=== PATIENT | male | born 1980 | race Caucasian/White ===

== ENCOUNTER 2017-06-14 09:06 | Inpatient (IN) | payer BC, OTHER ==
[~2017-06-14] VITALS: Ht 182.9 cm; Wt 81.6 kg
--- NOTE | 2017-06-14 12:54 | NUR ---
PRE-ADMISSION NOTES Patient is in intake office at this time. Pt is A/O x4, slow to respond. Patient denies medical history, denies having home medications Pt reports being here for ETOH withdrawals. V/S are stable. Denies hx of seizures. Primary nurse to complete admission when patient is on unit.
[2017-06-14 12:57] VITALS: BP 138/100
[2017-06-14] MEDS ORDERED: LORAZEPAM 1 MG TABLET PO PRN ×2 (13:30)
[2017-06-14] MEDS ORDERED: LOPERAMIDE HCL 2 MG CAPSULE PO PRN ×2 (13:30)
[2017-06-14] MEDS ORDERED: LORAZEPAM 2 MG/1 ML VIAL IM PRN (13:30)
[2017-06-14] MEDS ORDERED: ONDANSETRON 4 MG/2 ML VIAL IM PRN (13:30)
[2017-06-14] MEDS ORDERED: ACETAMINOPHEN 325 MG TABLET PO PRN (13:30)
[2017-06-14] MEDS ORDERED: MAG HYDROX/AL HYDROX/SIMETH 30 ML LIQUID UDC PO PRN (13:30)
[2017-06-14] MEDS ORDERED: ONDANSETRON ODT 4 MG TAB.RAPDIS SL PRN (13:30)
[2017-06-14] MEDS ORDERED: MIRALAX 17 GM POWD.PACK PO PRN (13:30)
[2017-06-14] MEDS ORDERED: IBUPROFEN 400 MG TABLET PO PRN (13:30)
[2017-06-14] MEDS ORDERED: THIAMINE HCL 200 MG/2 ML VIAL IM ONE (14:00)
--- NOTE | 2017-06-14 15:25 | NUR ---
ADMISSION: A 37 YO MALE ADMITTED FOR MEDICALLY SUPERVISED WITHDRAWAL OF ETOH. HE PRESENTS WITH ANXIOUS MOOD AND CONGRUENT AFFECT. HE IS ODOROUS OF ETOH. HE STATES HE IS CRAVING ALCOHOL AT THIS TIME. HE STATES HE HAD 3 SHOTS OF VODKA AND A BLOODY ALETHA AT [facility] [place] A COUPLE OF HOURS AGO. HE REPORTS DRINKING 750 ML OF VODKA DAILY ALONG WITH 6-12 BEERS. HE STATES IT IS AFFECTING HIS MARRIAGE AND HE IS BLACKING OUT AND DRINKING IN THE MORNING. HE STATES HIS LIFE IS OUT OF CONTROL AND AND HE HAS BEEN GETTING VIOLENT BREAKING THINGS IN THE HOUSE. HE STATES HE NEEDS HELP AND CANNOT STOP DRINKING ON HIS OWN. HE DENIES S/I AND H/I. HE DENIES SZ HX. HE DENIES MEDICAL HX. HE DENIES ALLERGIES. HE DENIES A PCP. HE STATES HE HAS NEVER BEEN TO DETOX OR TREATMENT BEFORE. ORIENTED PT TO STAFF AND UNIT. ENCOURAGED INCREASED FLUIDS. REASSURED HIM THAT NURSING STAFF IS HERE 07/03. MD ASSESSED PT. HE REFUSED THIAMINE INJECTION. WILL CONTINUE TO MONITOR AND PROVIDE SAFE AND SUPPORTIVE ENVIRONMENT. Addendum: 06/14/17 at 1738 by JENNY LEO RN SKIN INTACT
[2017-06-14 15:38] LABS: *AMPHETAMINE, URINE NEGATIVE (NEGATIVE); *BARBITURATE, URINE NEGATIVE (NEGATIVE); *CANNABINOID, URINE NEGATIVE (NEGATIVE); *COCCAINE, URINE NEGATIVE (NEGATIVE); *OPIATE, URINE NEGATIVE (NEGATIVE); *PHENCYCLIDINE SCREEN,URINE NEGATIVE (NEGATIVE)
[2017-06-14 15:44] LABS: BASOPHILS # (AUTO) 0.1 K/uL (0.0-8.0); BASOPHILS % (AUTO) 0.9 % (0.0-2.0); EOSINOPHILS # (AUTO) 0.1 K/uL (0.0-0.7); EOSINOPHILS % (AUTO) 0.8 % (0.0-7.0); HEMATOCRIT 45.2 % (40-50); HEMOGLOBIN 14.9 G/DL (14.0-18.0); LYMPHOCYTES # (AUTO) 2.5 K/UL (0.8-4.8); MEAN CORPUSCULAR HEMOGLOBIN 29.5 UUG (27.0-31.0); MEAN CORPUSCULAR HGB CONC 33 g/dL (32.0-37.0); MEAN CORPUSCULAR VOLUME 89.7 FL (82.0-92.0); MONOCYTES # (AUTO) 0.6 K/UL (0.1-1.30); MONOCYTES % (AUTO) 8.1 % (0.0-11.0); NEUTROPHILS # (AUTO) 3.9 K/UL (1.8-8.9); NEUTROPHILS % (AUTO) 55.2 % (38.5-71.5); PLATELET COUNT (AUTO) 271 K/UL (150-450); RED BLOOD CELL COUNT(AUTO) 5.04 MIL/UL (4.7-6.1); WHITE BLOOD COUNT (AUTO) 7.2 K/UL (4.0-11.2)
[2017-06-14 16:00] VITALS: BP 104/54
[2017-06-14 16:04] LABS: BILIRUBIN,TOTAL 0.3 mg/dL (0.2-1.0); POTASSIUM 4.4 mmol/L (3.5-5.1)
[2017-06-14 16:24] LABS: CREATININE 0.9 mg/dL (0.6-1.3)
--- NOTE | 2017-06-14 17:00 | NUR ---
CIWA DEFERRED. PT IS ASLEEP. RESPIRATIONS EVEN AND UNLABORED. CALL SWAIN IN REACH. BED LOCKED AND LOW.
--- NOTE | 2017-06-14 19:06 | NUR ---
END OF SHIFT: PT HAS BEEN SLEEPING SINCE ASSESSMENT WAS FINISHED. CALL BED IN REACH. BED LOCKED AND LOW. WILL PASS SHIFT REPORT TO ONCOMING NIGHT NURSE.
[2017-06-14 20:00] VITALS: BP 116/71
--- NOTE | 2017-06-14 20:00 | NUR ---
Start of Shift Pt is a 37 year old male admitted for ETOH dependence. Pt reported consuming Vodka 750ml /daily and Beer 6-12/daily. Pt denies any past medical history. NKA, regular diet, fall/seizure precaution no hx of seizures and full code. Upon assessment, Pt reports feeling anxious, reports feeling mild chills, skin flushed/clammy, respirations even/unlabored, denies SOB/chest pain, denies n/v/d, safety measures in place, call light within reach, side rails up x2, bed locked and in low position. Will continue to monitor.
[2017-06-14] MEDS ORDERED: LORAZEPAM 1 MG TABLET PO ONE (21:00)
[2017-06-15] VITALS: BP 106/53
--- NOTE | 2017-06-15 | NUR ---
Vital Signs/CIWA deferred BP 106/53, pulse 92, resp 16, Spo2 98% room air, temp 98.1, no pain CIWA deferred due to pt sleeping, to assess while pt is awake as ordered Safety measures in place, will continue to monitor.
[2017-06-15] MEDS: diphenhydrAMINE 50 MG CAPSULE PO PRN (03:46)
--- NOTE | 2017-06-15 03:46 | NUR ---
PRN Administration Pt reports, "I sleep for an hour. Its on and off. then I wake up" Benadryl 50mg PRN administered. Safety measures in place, will continue to monitor.
[2017-06-15 04:00] VITALS: BP 106/59
--- NOTE | 2017-06-15 04:36 | NUR ---
PRN Reassessment Upon reassessment, pt is in bed, resting with eyes closed, respirations even/unlabored. Safety measures in place, will continue to monitor.
--- NOTE | 2017-06-15 07:00 | NUR ---
End of Shift Pt is a 37 year old male admitted for ETOH dependence. Pt reported consuming Vodka 750ml /daily and Beer 6-12/daily. Pt denies any past medical history. NKA, regular diet, fall/seizure precaution no hx of seizures and full code. During shift, Pt reported feeling anxious, reported feeling mild chills, skin flushed/clammy scheduled Ativan 2mg x1 administered, CIWA 5. Benadryl 50mg PRN administered for sleep. Pt slept for 6 hours, intake of 1500 ml PO, voids x3 and stool x0. Safety measures in place, call light within reach, side rails up x2, bed locked and in low position. Endorsed to day shift nurse.
--- NOTE | 2017-06-15 07:20 | NUR ---
Start of Shift Endorsement received from nightshift nurse. Pt is a 37 y/o male admitted for alcohol dependence. PT has not been placed on a taper at this time. Pt is under observation under the care of Dr. Alfaro. Pt is moderately withdrawing AEB CIWA 5 at midnight. Pt received PRN Ativan and Benadryl. PT reports sleeping 6 hours. PT remains compliant with medication regimen. VS WNL. Full Code. Pt is alert and oriented x4. Call light within reach. All safety measures are in place, side rails up x2. All needs have been met at this time. Will continue to monitor.
[2017-06-15 08:04] VITALS: BP 139/79
[2017-06-15 08:06] LABS: HEPATITIS B SURFACE AG Negative (Negative)
[2017-06-15] MEDS: MULTIVITAMINS,THERAPEUTIC TABLET PO SCH (08:13)
[2017-06-15] MEDS: THIAMINE HCL 100 MG TABLET PO SCH (08:13)
[2017-06-15] MEDS: FOLIC ACID 1 MG TABLET PO SCH (08:13)
--- NOTE | 2017-06-15 08:13 | NUR ---
PRN Ativan Administered prn ativan 1mg for CIWA 6.
--- NOTE | 2017-06-15 08:30 | NUR ---
Medication Re-assessment Pt presents with CIWA score of 2. Medication was effective.
[2017-06-15] MEDS ORDERED: TUBERCULIN,PURIF.PROT.DERIV. 5 TU/0.1 ML TEST ID ONE (09:00)
[2017-06-15 12:00] VITALS: BP 146/84
[2017-06-15] MEDS: LORAZEPAM 1 MG TABLET PO SCH ×2 (12:15→20:08)
[2017-06-15 16:00] VITALS: BP 144/88
--- NOTE | 2017-06-15 19:04 | NUR ---
End of Shift Endorsement given to nightshift nurse. Pt is a 37 y/o male admitted for alcohol dependence. PT has been placed on a modified Subutex taper. Pt is moderately withdrawing AEB CIWA 4 at 1600. Pt received PRN Ativan. PT participated in groups and activities. Educated pt on diet and medication regimen. Intake: 2180ml, Void x3, BM x1. PT remains compliant with medication regimen. VS WNL. Full Code. Pt is alert and oriented x4. Call light within reach. All safety measures are in place, side rails up x2. All needs have been met at this time. Will continue to monitor.
[2017-06-15 20:00] VITALS: BP 130/85
--- NOTE | 2017-06-15 20:00 | NUR ---
Start of Shift Pt is a 37 year old male admitted for ETOH dependence. Pt reported consuming Vodka 750ml /daily and Beer 6-12/daily. Pt denies any past medical history. NKA, regular diet, fall/seizure precaution - no hx of seizures and full code. Upon assessment, Pt reports feeling anxious, reports mild body/aches, skin flushed/clammy, encouraged pt to participate in activities, respirations even/unlabored, denies SOB/chest pain, denies n/v/d, safety measures in place, call light within reach, side rails up x2, bed locked and in low position. Will continue to monitor.
[2017-06-15] MEDS: GABAPENTIN 300 MG CAPSULE PO SCH (20:08)
[2017-06-16] VITALS: BP 121/70
--- NOTE | 2017-06-16 | NUR ---
Vital Signs/CIWA deferred BP 121/70, pulse 79, resp 16, Spo2 99% room air, temp 98, no pain CIWA deferred due to pt sleeping, to assess while pt is awake as ordered Safety measures in place, will continue to monitor.
--- NOTE | 2017-06-16 04:00 | NUR ---
Pt refused to be woken up for 0400 VS. CIWA deferred due to pt sleeping, to assess while pt is awake as ordered. Safety measures in place, will continue to monitor.
--- NOTE | 2017-06-16 07:00 | NUR ---
End of Shift Pt is a 37 year old male admitted for ETOH dependence. Pt reported consuming Vodka 750ml /daily and Beer 6-12/daily. Pt denies any past medical history. NKA, regular diet, fall/seizure precaution - no hx of seizures and full code. During shift, Pt reported feeling anxious, reported mild body/aches, skin flushed/clammy scheduled taper medications administered, effective in management of s/s of withdrawal as reported per pt, CIWA 4. No PRN medications administered during shift. Pt remained in room throughout shift, encouraged pt to participate in activities. Pt slept for 10 hours, intake of 500 ml PO, voids x1 and stool x0. Safety measures in place, call light within reach, side rails up x2, bed locked and in low position. Endorsed to day shift nurse.
--- NOTE | 2017-06-16 07:30 | NUR ---
start of shift note: received pt from hourly shift nurse, pt's last ciwa is 4 pt is admitted for etoh withdrawal/dependence. pt is anxious and appears stressed and depressed about being away from work and family. will monitor pt for any changes and will continue to meet pt's needs
[2017-06-16] MEDS: FOLIC ACID 1 MG TABLET PO SCH (08:01)
[2017-06-16] MEDS: MULTIVITAMINS,THERAPEUTIC TABLET PO SCH (08:01)
[2017-06-16] MEDS: GABAPENTIN 300 MG CAPSULE PO SCH ×3 (08:02→20:30)
[2017-06-16] MEDS: CLONIDINE HCL 0.1 MG TABLET PO PRN (08:02)
[2017-06-16] MEDS: LORAZEPAM 1 MG TABLET PO SCH ×2 (08:02→15:33)
[2017-06-16] MEDS: THIAMINE HCL 100 MG TABLET PO SCH (08:02)
--- NOTE | 2017-06-16 08:02 | NUR ---
PRN ADMINISTRATION: PT WITH B/P OF 142/87, and also verbalized he was anxious and crawling out of his skin. prn clonidine was administered. will re-assess effectiveness of medication
[2017-06-16 09:00] VITALS: BP 142/87
--- NOTE | 2017-06-16 09:00 | NUR ---
prn re-assessment: pt's b/p currently is 130/78, pt did a phone call with primary nurse to home, pt was able to speak with and pt verbalized he feels better and more at ease.
[2017-06-16 12:00] VITALS: BP 163/104
[2017-06-16] MEDS ORDERED: CLONIDINE HCL 0.2 MG TABLET PO ONE (12:00)
--- NOTE | 2017-06-16 14:34 | NUR ---
therapist prompted client to attend group today and not isolate in his room, client agreed to attend groups.
[2017-06-16 16:00] VITALS: BP 142/99
[2017-06-16] MEDS ORDERED: LORAZEPAM 1 MG TABLET PO ONE (17:15)
[2017-06-16] MEDS ORDERED: LORAZEPAM 1 MG TABLET PO PRN ×2 (17:15)
--- NOTE | 2017-06-16 19:05 | NUR ---
Start of Shift Patient Received. Patient is in his room awake, alert and verbally responsive. Breathing even and non labored. Patient is awake and watching TV. Patient is a 37 year old male admitted on 06/14/17 for ETOH Dependence under the care of Dr. Alfaro and patient continues on a modified 3 day Ativan taper. Patient verbalizes no known allergies, wishes to be full code, following a regular diet, placed on fall precautions, skin noted intact. No past medical history noted. Per endorsement, patient was given PRN Clonidine with medication noted to be effective. Last noted CIWA is 8. All needs attended to promptly. Will continue plan of care as ordered.
--- NOTE | 2017-06-16 19:12 | NUR ---
End of Shift Endorsement given to nightshift nurse. Pt is a 37 y/o male admitted for alcohol dependence. PT has been placed on a modified Subutex taper. Pt is mildly withdrawing AEB CIWA 2 at 1600. Pt did not receive any PRN medications. PT participated in groups and activities. Educated pt on coping mechanisms. Intake: 5000ml, Void x3, BM x1. PT remains compliant with medication regimen. VS WNL. Full Code. Pt is alert and oriented x4. Call light within reach. All safety measures are in place, side rails up x2. All needs have been met at this time. Will continue to monitor.
[2017-06-16 20:21] VITALS: BP 112/72
[2017-06-16] MEDS: ESCITALOPRAM OXALATE 10 MG TABLET PO SCH (20:30)
[2017-06-16] MEDS ORDERED: LORAZEPAM 1 MG TABLET PO SCH (21:00)
[2017-06-17 00:21] VITALS: BP 100/59
[2017-06-17 04:39] VITALS: BP 96/55
--- NOTE | 2017-06-17 07:14 | NUR ---
End of Shift Patient is in bed sleeping but easily aroused to verbal stimuli. Breathing even and non labored. No signs of pain or discomfort noted. Patient is a 37 year old male admitted on 06/14/17 for ETOH Dependence and continues on a modified 3 day Ativan taper. No Known Allergies, Full Code, following a regular diet, placed on fall precautions, skin noted intact. No past medical history noted. No PRN Medications administered. Last noted CIWA is 7. All needs attended to promptly. Will endorse to continue plan of care as ordered.
--- NOTE | 2017-06-17 07:46 | NUR ---
BEGINNING OF SHIFT Patient endorsement report received from shift production supervisor nurse, all pertinent information discussed. patient is a 37 year old male admitted on: 06/14/2017. with admitting Dx: etoh dependence. patient Continues on 3 day modified Ativan taper as ordered. patients skin is intact. per shift production supervisor patient slept for 9 hours, and received no PRNs during shift production supervisor. Patient received awake, alert and oriented x4, educated regarding plan of care for the day with good verbal understanding. safety measures in place. call light kept with in reach, will continue to monitor.
[2017-06-17 08:00] VITALS: BP 136/87
[2017-06-17] MEDS: THIAMINE HCL 100 MG TABLET PO SCH (08:19)
[2017-06-17] MEDS: LORAZEPAM 1 MG TABLET PO SCH ×3 (08:19→20:16)
[2017-06-17] MEDS: FOLIC ACID 1 MG TABLET PO SCH (08:19)
[2017-06-17] MEDS: MULTIVITAMINS,THERAPEUTIC TABLET PO SCH (08:19)
[2017-06-17] MEDS: GABAPENTIN 300 MG CAPSULE PO SCH ×3 (08:19→20:16)
[2017-06-17] MEDS ORDERED: LORAZEPAM 1 MG TABLET PO SCH (09:00)
[2017-06-17 13:30] VITALS: BP 140/84
[2017-06-17] MEDS: HYDROXYZINE PAMOATE 25 MG CAPSULE PO PRN (15:17)
--- NOTE | 2017-06-17 15:17 | NUR ---
PRN VISTARIL Patient c/o increase anxiety, provided patient with calming reassurance with no relief, administered Vistaril as ordered, will monitor effectiveness of medication.
--- NOTE | 2017-06-17 16:17 | NUR ---
VISTARIL REASSESSMENT Patient reports medication effective, feels less anxious. safety measures in place. call light with in reach, will continue to monitor.
[2017-06-17 16:45] VITALS: BP 157/105
[2017-06-17] MEDS: CLONIDINE HCL 0.1 MG TABLET PO PRN (16:48)
--- NOTE | 2017-06-17 16:48 | NUR ---
PRN CLONIDINE Patient with bp: 157/105 Heart rate of: 94, administered clonidine 0.1mg Po as ordered, will monitor closely. patient denies chest pain or headache will continue to monitor.
--- NOTE | 2017-06-17 17:48 | NUR ---
CLONIDINE REASSESSMENT Medication effective, blood pressure reduced : 141/85. will continue to monitor.
--- NOTE | 2017-06-17 19:00 | NUR ---
Start of Shift Patient is in his room sleeping but easily aroused to verbal stimuli. Breathing even and non labored. Patient is a 37 year old male admitted on 06/14/17 for ETOH Dependence and continues on a modified 3 day Ativan taper. No Known Allergies, Full Code, following a regular diet, placed on fall precautions, skin noted intact. No past medical history noted. Per endorsement, patient received PRN Vistaril and Clonidine with medication noted to be effective. Patients last noted CIWA 6. All needs attended to promptly. Will continue plan of care as ordered.
--- NOTE | 2017-06-17 19:01 | NUR ---
END OF SHIFT Patient alert and orientedx4, compliant with therapeutic plan of care, patient with admitting Dx: eoth dependence. Patient continues on modified 3 day Ativan taper and continues on day 2 of taper, well tolerated, no ASE noted. Patient 0900 assessment presented with: fine tremors, moderate anxiety, and mild agitation with ciwa score of: 8; 1300 patient presented with: fine tremors, and anxiety with ciwa score of: 6; 1700 patient presented with: fine tremors, and anxiety with ciwa score of: 2. Patient was encouraged adequate PO fluid intake as tolerated. Encouraged to attend group therapies/sessions to learn new coping skills to prevent relapse, patient noted attending and participating denies any SI/HI. Patient received PRN: Vistaril and clonidine during shift, medications were effective. Patients safety measures in place. Call light kept with in reach. Endorsed to film processing shift supervisor nurse, all pertinent information discussed. Will continue to monitor.
[2017-06-17 20:11] VITALS: BP 137/89
[2017-06-17] MEDS: ESCITALOPRAM OXALATE 10 MG TABLET PO SCH (20:15)
[2017-06-18] VITALS (7 sets, daily range): BP systolic 101–149; BP diastolic 60–96
--- NOTE | 2017-06-18 07:07 | NUR ---
End of Shift Patient is in bed sleeping. Breathing even and non labored. Patient is a 37 year old male admitted on 06/14/17 for ETOH Dependence and continues on a modified 3 day Ativan taper. No Known Allergies, Full Code, following a regular diet, placed on fall precautions, skin noted intact. No past medical history noted. No PRN Medications administered. Patients last noted CIWA 7. All needs attended to promptly. Will continue plan of care as ordered.
--- NOTE | 2017-06-18 07:35 | NUR ---
BEGINNING OF SHIFT Patient endorsement report received from template worker nurse, all pertinent information discussed. patient is a 37 year old male admitted on: 06/14/2017. with admitting Dx: etoh dependence. patient Continues on 3 day modified Ativan taper as ordered. patients skin is intact. per template worker patient slept for 11 hours, and received no PRNs during template worker. Patient received awake, alert and oriented x4, educated regarding plan of care for the day and medication regimen with good verbal understanding. safety measures in place. call light kept with in reach, will continue to monitor.
[2017-06-18] MEDS: MULTIVITAMINS,THERAPEUTIC TABLET PO SCH (08:40)
[2017-06-18] MEDS: GABAPENTIN 300 MG CAPSULE PO SCH ×3 (08:40→21:01)
[2017-06-18] MEDS: THIAMINE HCL 100 MG TABLET PO SCH (08:40)
[2017-06-18] MEDS: LORAZEPAM 1 MG TABLET PO SCH ×2 (08:40→21:01)
[2017-06-18] MEDS: FOLIC ACID 1 MG TABLET PO SCH (08:40)
[2017-06-18] MEDS: HYDROXYZINE PAMOATE 25 MG CAPSULE PO PRN (12:01)
[2017-06-18] MEDS: CLONIDINE HCL 0.1 MG TABLET PO PRN (12:02)
--- NOTE | 2017-06-18 12:02 | NUR ---
PRN CLONIDINE/VISTARIL Patient c/o increase in anxiety, provided patient with calming reassurance and non pharmacological interventions with no relief, patient also with bp: 141/90 heart rate: 76, Administered Vistaril 25mg PO as ordered, and clonidine 0.1mg PO as ordered, will monitor effectiveness of medications.
--- NOTE | 2017-06-18 13:02 | NUR ---
CLONIDINE/VISTARIL REASSESSMENT Patient reports medication effective, feels less anxious. bp: 133/88. Medications effective, will continue to monitor closely.
--- NOTE | 2017-06-18 18:55 | NUR ---
END OF SHIFT Patient alert and orientedx4, compliant with therapeutic plan of care, patient with admitting Dx: eoth dependence. Patient continues on modified 3 day Ativan taper and continues on day 3 of taper, well tolerated, no ASE noted. Patient 0900 assessment presented with: fine tremors, and anxiety with ciwa score of: 6; 1300 assessment patient presented with: fine tremors and anxiety with ciwa score of: 6;1700 assessment patient presented with: mild anxiety and fine tremors with ciwa score of: 3. Patient was encouraged adequate PO fluid intake as tolerated. Encouraged to attend group therapies/sessions to learn new coping skills to prevent relapse, patient noted attending and participating denies any SI/HI. Patient received PRN: Vistaril and clonidine during shift, medications were effective. Patients safety measures in place. Call light kept with in reach. Endorsed to night manager nurse, all pertinent information discussed. Will continue to monitor.
--- NOTE | 2017-06-18 19:10 | NUR ---
Start of Shift Patient Received. Patient is in activities room participating in group activities. Patient is a 37 year old male admitted on 06/14/17 for ETOH Dependence and continues on a modified 3 day Ativan taper. No Known Allergies, Full Code, following a regular diet, placed on fall precautions, skin noted intact. No past medical history noted. Per endorsement, patient received PRN Vistaril and Clonidine with medication noted to be effective. Patients last noted CIWA 3. All needs attended to promptly. Will continue plan of care as ordered.
[2017-06-18] MEDS: ESCITALOPRAM OXALATE 10 MG TABLET PO SCH (21:01)
[2017-06-18] MEDS: diphenhydrAMINE 50 MG CAPSULE PO PRN (21:01)
[2017-06-18] MEDS: CLONIDINE HCL 0.1 MG TABLET PO SCH (21:01)
--- NOTE | 2017-06-18 21:02 | NUR ---
PRN Medication Administration Patient is verbalizing inability of falling asleep. PRN Benadryl administered as per ordered. Will continue to monitor.
--- NOTE | 2017-06-18 22:00 | NUR ---
PRN Medication Reassessment Patient is noted in bed sleeping. Breathing even and non labored. No signs of pain or discomfort noted as evidence of no facial grimacing noted. PRN Benadryl noted to be effective. Will continue to monitor.
[2017-06-19 00:46] VITALS: BP 108/73
[2017-06-19 04:00] VITALS: BP 98/53
--- NOTE | 2017-06-19 07:31 | NUR ---
End of Shift Patient is in bed sleeping. Breathing even and non labored. Patient is a 37 year old male admitted on 06/14/17 for ETOH Dependence and continues on a modified 3 day Ativan taper. No Known Allergies, Full Code, following a regular diet, placed on fall precautions, skin noted intact. No past medical history noted. Patient was given PRN Benadryl with medications noted to be effective. Patients last noted CIWA 6. All needs attended to promptly. Will continue plan of care as ordered.
--- NOTE | 2017-06-19 07:49 | NUR ---
BEGINNING OF SHIFT Patient endorsement report received from assistant shift supervisor nurse, all pertinent information discussed. patient is a 37 year old male admitted on: 06/14/2017. with admitting Dx: etoh dependence. patient Continues on 3 day modified Ativan taper as ordered. patients skin is intact. per assistant shift supervisor patient slept for 6 hours, and received PRN: Benadryl during assistant shift supervisor, recevied last dose of ativan on 06/18/2017 at 2100, well toleratated, no ASE noted, Patient with last ciwa score of: 6. patient will continue under close observation during shift. Patient received awake, alert and oriented x4, educated regarding plan of care for the day and medication regimen with good verbal understanding. safety measures in place. call light kept with in reach, will continue to monitor.
[2017-06-19 08:45] VITALS: BP 127/99
[2017-06-19] MEDS: MULTIVITAMINS,THERAPEUTIC TABLET PO SCH (08:55)
[2017-06-19] MEDS: GABAPENTIN 300 MG CAPSULE PO SCH ×3 (08:55→20:47)
[2017-06-19] MEDS: FOLIC ACID 1 MG TABLET PO SCH (08:56)
[2017-06-19] MEDS: CLONIDINE HCL 0.1 MG TABLET PO SCH ×2 (08:56→20:47)
[2017-06-19] MEDS: THIAMINE HCL 100 MG TABLET PO SCH (08:59)
[2017-06-19] MEDS ORDERED: LORAZEPAM 1 MG TABLET PO SCH (09:00)
[2017-06-19] MEDS: HYDROXYZINE PAMOATE 25 MG CAPSULE PO PRN (12:06)
--- NOTE | 2017-06-19 12:06 | NUR ---
PRN VISTARIL Patient c/o increase anxiety, provided patient with calming reassurance with no relief, administered Vistaril as ordered, will monitor effectiveness of medication.
[2017-06-19 12:30] VITALS: BP 128/97
--- NOTE | 2017-06-19 13:06 | NUR ---
VISTARIL REASSESSMENT Patient reports medication effective, feels less anxious. safety measures in place. call light with in reach, will continue to monitor.
[2017-06-19 16:59] VITALS: BP 140/89
[2017-06-19] MEDS ORDERED: CLON0.1T14 PO (18:35)
[2017-06-19] MEDS ORDERED: HYDR-3895 PO (18:35)
[2017-06-19] MEDS ORDERED: ESCI10TA PO (18:35)
[2017-06-19] MEDS ORDERED: DIPH50CA37 PO (18:35)
[2017-06-19] MEDS ORDERED: GABA-534 PO ×2 (18:35)
--- NOTE | 2017-06-19 18:51 | NUR ---
END OF SHIFT Patient alert and orientedx4, compliant with therapeutic plan of care, patient with admitting Dx: eoth dependence. Patient continues on modified 3 day Ativan taper and continues on day 3 of taper, well tolerated, no ASE noted. Patient received last dose of Ativan this morning, well tolerated, no ASE noted. Patient is scheduled to be discharged tomorrow morning, noted self motivated towards sobriety. Patient 0900 assessment presented with: tremors that can be felt but not seen, and anxiety with ciwa score of: 4; 1300 assessment patient presented with: tremors that can be felt but not seen, and anxiety with ciwa score of: 4; 1700 assessment patient presented with: tremors that can be felt but not seen, and mild anxiety with cow score of: 2. Patient was encouraged adequate PO fluid intake as tolerated. Encouraged to attend group therapies/sessions to learn new coping skills to prevent relapse, patient noted attending and participating denies any SI/HI. Patient received PRN: Vistaril during shift, medication was effective. Patients safety measures in place. Call light kept with in reach. Endorsed to presales senior specialist nurse, all pertinent information discussed. Will continue to monitor.
[2017-06-19 20:00] VITALS: BP 130/89
--- NOTE | 2017-06-19 20:00 | NUR ---
Start of Shift Pt is a 37 year old male admitted for ETOH dependence. Pt reported consuming Vodka 750ml /daily and Beer 6-12/daily. Pt denies any past medical history. NKA, regular diet, fall/seizure precaution - no hx of seizures and full code. Upon assessment, Pt reports feeling anxious, skin flushed/clammy, respirations even/unlabored, denies SOB/chest pain, denies n/v/d, medications due, pt is scheduled for discharge tomorrow. safety measures in place, call light within reach, side rails up x2, bed locked and in low position. Will continue to monitor.
[2017-06-19] MEDS: ESCITALOPRAM OXALATE 10 MG TABLET PO SCH (20:47)
[2017-06-19] MEDS: diphenhydrAMINE 50 MG CAPSULE PO PRN (21:12)
--- NOTE | 2017-06-19 21:12 | NUR ---
PRN Administration Pt requests aid to help him sleep. Benadryl 50mg PRN administered. Safety measures in place, will continue to monitor.
--- NOTE | 2017-06-19 22:12 | NUR ---
PRN Reassessment Upon reassessment, pt is in bed, eyes closed sleeping, respirations even/unlabored. Safety measures in place, will continue to monitor.
[2017-06-20] VITALS: BP 108/76
--- NOTE | 2017-06-20 | NUR ---
Vital Signs/CIWA deferred BP 108/76, pulse 72, resp 17, Spo2 99% room air, temp 97.9, no pain CIWA deferred due to pt sleeping, to assess while pt is awake as ordered Safety measures in place, will continue to monitor
--- NOTE | 2017-06-20 04:00 | NUR ---
Pt refused to be woken up for 0400 VS. CIWA deferred due to pt sleeping To assess CIWA while pt is awake as ordered. Safety measures in place, will continue to monitor.
--- NOTE | 2017-06-20 07:00 | NUR ---
End of Shift Pt is a 37 year old male admitted for ETOH dependence, placed on Ativan taper - completed. Pt reported consuming Vodka 750ml /daily and Beer 6-12/daily. Pt denies any past medical history. NKA, regular diet, fall/seizure precaution - no hx of seizures and full code. During shift, Pt reported feeling anxious, skin flushed/clammy - scheduled medications administered along with Benadryl 50mg PRN. Latest CIWA 2. Pt slept for 6 hours, intake of 1343 ml PO, voids x2 and stool x0. Pt is scheduled for discharge today. safety measures in place, call light within reach, side rails up x2, bed locked and in low position. Endorsed to day shift nurse.
--- NOTE | 2017-06-20 07:30 | NUR ---
START OF SHIFT Pt is a 37 yr old male, AA&Ox4. pt was admitted on 06/14/17 for ETOH Dependence and has completed 3 day Ativan taper as ordered. Medication was charly well. Received report from cook cold meat nurse. Pt received Benadryl PRN for sleep. Pt slept for 6 hrs. last CIWA score was 2 at 1999. Pt is c/o mild anxiety this morning but is able to cope with anxiety level. Skin is intact, warm and dry to touch. No tremors seen. Pt denies any n/v. Pt is to be discharged today. Pt states he is ready to move forward with his recovery. Safety precautions observed. Call light is within reach. will continue to monitor.
[2017-06-20 08:00] VITALS: BP 143/98
[2017-06-20 08:21] VITALS: BP 143/98
[2017-06-20] MEDS: THIAMINE HCL 100 MG TABLET PO SCH (08:21)
[2017-06-20] MEDS: FOLIC ACID 1 MG TABLET PO SCH (08:21)
[2017-06-20] MEDS: CLONIDINE HCL 0.1 MG TABLET PO SCH (08:21)
[2017-06-20] MEDS: GABAPENTIN 300 MG CAPSULE PO SCH (08:21)
[2017-06-20] MEDS: MULTIVITAMINS,THERAPEUTIC TABLET PO SCH (08:21)
--- NOTE | 2017-06-20 09:30 | NUR ---
DISCHARGE NOTE Pt is a 37 yr old male, AA&Ox4. pt was admitted on 06/14/17 for ETOH Dependence and has completed 3 day Ativan taper as ordered. Medication was charly well. Pt has been cooperative with west of care and medication regimen. Pt was c/o mild anxiety but is able to cope with anxiety level. Pt was educated on discharged summary and prescriptions. Pt was able to verbalize understanding. Pt was discharged on 06/20/17 at 0926 in stable condition to [facility]. Pt CIWA score was 1 at 0800 for mild anxiety. No acute distress noted. Pt left the unit with all belonging and values. Pt denies any home medications.
== END 2017-06-20 09:26 | disposition other institution (70) | DRG 895 ==
LOC: SRC 12:46
PROVIDERS: ADMIT Internal Medicine; ATTEND Internal Medicine
PROC: HZ2ZZZZ Detoxification Services for Substance Abuse Treatment (ICD-10-PCS; principal; 2017-06-14)
PROC: HZ41ZZZ Group Counseling for Substance Abuse Treatment, Behavioral (ICD-10-PCS; 2017-06-15)
PROC: HZ31ZZZ Individual Counseling for Substance Abuse Treatment, Behavioral (ICD-10-PCS; 2017-06-16)
DX: F10.232 Alcohol dependence with withdrawal with perceptual disturbance (principal); K70.10 Alcoholic hepatitis without ascites; I15.9 Secondary hypertension, unspecified; F17.210 Nicotine dependence, cigarettes, uncomplicated; Y90.9 Presence of alcohol in blood, level not specified; Z82.49 Family history of ischemic heart disease and other diseases of the circulatory system; Z81.1 Family history of alcohol abuse and dependence; F32.9 Major depressive disorder, single episode, unspecified
CPT/HCPCS: 36415; 70030-TC; 80307; 83735; 85025; 86592; 86705; 86803; 87340; 87806; A4663; G0480; Q0163